=== PATIENT | female | born 1935 | race Caucasian/White ===

== ENCOUNTER 2019-11-04 02:15 | Inpatient (IN) | payer MEDICARE, OTHER ==
[~2019-11-04] VITALS: Ht 154.9 cm; Wt 72.7 kg
[2019-11-04] MEDS ORDERED: SODIUM CHLORIDE 0.9% 1,000 ML IV ONE (03:30)
[2019-11-04] MEDS ORDERED: VANCOMYCIN HCL 1 GM/D5% WATER 200 ML IV ONE (03:30)
[2019-11-04 04:23] LABS: BASOPHILS % (AUTO) 0.5 % (0.0-2.0); EOSINOPHILS % (AUTO) 10.6 % (1.0-6.0); HEMATOCRIT 36.7 % (36-46); HEMOGLOBIN 12.2 g/dL (12.0-16.0); LYMPHOCYTES # (AUTO) 1.7 K/uL (1.0-4.8); LYMPHOCYTES % (AUTO) 20.5 % (22.0-44.0); MEAN CORPUSCULAR HEMOGLOBIN 31.2 pg (26.0-34.0); MEAN CORPUSCULAR HGB CONC 33.1 G/dL (31.0-37.0); MEAN CORPUSCULAR VOLUME 94 fL (80-100); MONOCYTES # (AUTO) 0.6 K/uL (0.1-1.0); MONOCYTES % (AUTO) 6.9 % (2.0-9.0); NEUTROPHILS # (AUTO) 5.2 K/uL (1.8-7.7); NEUTROPHILS % (AUTO) 61.5 % (40.0-70.0); PLATELET COUNT (AUTO) 349 K/uL (150-450); RED CELL DISTRIBUTION WIDTH 14.4 % (11.5-14.5)
[2019-11-04 04:48] LABS: CALCIUM, TOTAL 8.9 mg/dL (8.8-10.5); CREATININE 1.52 mg/dL (0.60-1.30)
[2019-11-04 05:09] LABS: INR 1.1 (0.9-1.1); PROTHROMBIN TIME 11.2 SEC (9.4-11.6)
[2019-11-04 05:11] LABS: ALBUMIN 2.9 g/dL (3.4-5.0); BILIRUBIN,TOTAL 0.7 mg/dL (0.1-1.0); MAGNESIUM 2.3 mg/dL (1.80-2.40); TOTAL PROTEIN, SERUM 6.9 g/dL (6.4-8.2)
[2019-11-04] MEDS ORDERED: ACETAMINOPHEN 325 MG TABLET PO PRN ×2 (05:30→07:00)
[2019-11-04] MEDS ORDERED: 0.9% SODIUM CHLORIDE 10 ML SYRINGE IVP PRN (05:30)
[2019-11-04] MEDS ORDERED: ONDANSETRON HCL 4 MG/2 ML VIAL IVP PRN (05:30)
[2019-11-04] MEDS ORDERED: LORazepam 2 MG/ML VIAL IVP ONE (05:30)
[2019-11-04] MEDS ORDERED: PERMETHRIN 5% 60 GM CREAM TP ONE (05:45)
[2019-11-04] MEDS ORDERED: DEXTROSE 5%-0.45% SODIUM CHL 1,000 ML IV ONE (07:00)
[2019-11-04] MEDS ORDERED: MAGNESIUM HYDROXIDE SUSPENSION 30 ML UDCUP PO PRN (07:00)
[2019-11-04] MEDS ORDERED: ALBUTEROL SULFATE 2.5 MG/0.5 ML NEB SOLUTION NEB PRN (07:00)
[2019-11-04] MEDS ORDERED: VANCOMYCIN HCL 500 MG in DEXTROSE 5%-WATER 100 ML IV ONE (08:00)
[2019-11-04 08:42] VITALS: BP 149/86
[2019-11-04] MEDS: ASPIRIN 81 MG CHEWABLE TABLET PO SCH (08:51)
[2019-11-04] MEDS: DOCUSATE SODIUM 100 MG CAPSULE PO SCH ×2 (08:53→20:15)
[2019-11-04] MEDS: HEPARIN SODIUM,PORCINE 5,000 UNITS/ML VIAL SQ SCH ×3 (08:54→20:15)
[2019-11-04] MEDS ORDERED: DiphenhydrAMINE HCL 50 MG/ML VIAL ONE (09:19)
[2019-11-04] MEDS: DiphenhydrAMINE HCL 50 MG/ML VIAL IVP PRN ×2 (10:02→17:42)
[2019-11-04] MEDS ORDERED: LORazepam 2 MG/ML VIAL IVP PRN ×2 (12:30→14:15)
[2019-11-04] MEDS ORDERED: LORazepam 2 MG/ML VIAL IM PRN (12:30)
[2019-11-04] MEDS: TRIAMCINOLONE 0.1% 15 GM CREAM TP SCH ×2 (15:05→20:16)
[2019-11-04] MEDS ORDERED: FURO20 PO (15:55)
[2019-11-04] MEDS ORDERED: SULF1TAB42 PO (15:55)
[2019-11-04] MEDS ORDERED: AMLO2.5T4 PO (15:55)
[2019-11-04] MEDS ORDERED: TRIA15OI6 TP (15:55)
[2019-11-04] MEDS ORDERED: QUET25TA PO (15:55)
[2019-11-04] MEDS: QUEtiapine FUMARATE 25 MG TABLET PO PRN ×2 (15:58→20:15)
[2019-11-04 16:00] VITALS: BP 145/87
[2019-11-04 20:00] VITALS: BP 138/80
[2019-11-04] MEDS ORDERED: HALOPERIDOL LACTATE 5 MG/ML VIAL IM ONE (20:15)
[2019-11-05 01:00] VITALS: BP 132/85
[2019-11-05] MEDS: DiphenhydrAMINE HCL 50 MG/ML VIAL IVP PRN (02:02)
[2019-11-05] MEDS: VANCOMYCIN HCL 750 MG in DEXTROSE 5%-WATER 250 ML IV SCH (06:29)
[2019-11-05] MEDS: TRIAMCINOLONE 0.1% 80 GM CREAM TP SCH ×3 (07:52→21:00)
[2019-11-05] MEDS: DOCUSATE SODIUM 100 MG CAPSULE PO SCH ×2 (07:56→21:19)
[2019-11-05] MEDS: AmLODIPine BESYLATE 2.5 MG TABLET PO SCH (07:56)
[2019-11-05] MEDS: ASPIRIN 81 MG CHEWABLE TABLET PO SCH (07:56)
[2019-11-05] MEDS: QUEtiapine FUMARATE 25 MG TABLET PO PRN ×2 (07:56→21:19)
[2019-11-05] MEDS: HEPARIN SODIUM,PORCINE 5,000 UNITS/ML VIAL SQ SCH ×3 (07:56→23:28)
[2019-11-05 08:35] VITALS: BP 111/65
[2019-11-05] MEDS ORDERED: FUROSEMIDE 20 MG TABLET PO SCH (09:00)
[2019-11-05 10:00] LABS: GLUCOMETER DEV NAME(LOC) 6S.1; GLUCOSE,POINT OF CARE 125 MG/DL (70-110)
[2019-11-05 11:08] VITALS: BP 134/78
[2019-11-05 15:32] VITALS: BP 140/61
[2019-11-05 16:29] LABS: CALCIUM, TOTAL 8.9 mg/dL (8.8-10.5); CREATININE 1.12 mg/dL (0.60-1.30); POTASSIUM 4.1 mmol/L (3.5-5.1)
[2019-11-05 19:30] VITALS: BP 134/64
[2019-11-05 23:30] VITALS: BP 130/62
[2019-11-06 03:57] VITALS: BP 138/66
[2019-11-06] MEDS: VANCOMYCIN HCL 750 MG in DEXTROSE 5%-WATER 250 ML IV SCH (06:38)
[2019-11-06] MEDS: AmLODIPine BESYLATE 2.5 MG TABLET PO SCH (07:46)
[2019-11-06] MEDS: DOCUSATE SODIUM 100 MG CAPSULE PO SCH ×2 (07:46→21:22)
[2019-11-06] MEDS: ASPIRIN 81 MG CHEWABLE TABLET PO SCH (07:46)
[2019-11-06] MEDS: HEPARIN SODIUM,PORCINE 5,000 UNITS/ML VIAL SQ SCH ×2 (07:46→16:29)
[2019-11-06] MEDS: TRIAMCINOLONE 0.1% 80 GM CREAM TP SCH ×3 (07:46→21:23)
[2019-11-06 09:03] VITALS: BP 152/84
[2019-11-06] MEDS: QUEtiapine FUMARATE 25 MG TABLET PO PRN (09:53)
[2019-11-06 12:59] VITALS: BP 133/77
[2019-11-06 16:07] VITALS: BP 144/77
[2019-11-06 20:00] VITALS: BP 149/65
[2019-11-06 23:40] VITALS: BP 138/87
[2019-11-07] VITALS (7 sets, daily range): BP systolic 122–160; BP diastolic 46–79
[2019-11-07] MEDS: HEPARIN SODIUM,PORCINE 5,000 UNITS/ML VIAL SQ SCH ×3 (00:04→17:58)
[2019-11-07 06:57] LABS: BASOPHILS % (AUTO) 1.1 % (0.0-2.0); EOSINOPHILS % (AUTO) 14.1 % (1.0-6.0); HEMATOCRIT 33.1 % (36-46); HEMOGLOBIN 11.2 g/dL (12.0-16.0); LYMPHOCYTES # (AUTO) 1.5 K/uL (1.0-4.8); LYMPHOCYTES % (AUTO) 29.7 % (22.0-44.0); MEAN CORPUSCULAR HEMOGLOBIN 32.1 pg (26.0-34.0); MEAN CORPUSCULAR HGB CONC 33.9 G/dL (31.0-37.0); MEAN CORPUSCULAR VOLUME 95 fL (80-100); MONOCYTES # (AUTO) 0.3 K/uL (0.1-1.0); MONOCYTES % (AUTO) 6.4 % (2.0-9.0); NEUTROPHILS # (AUTO) 2.5 K/uL (1.8-7.7); NEUTROPHILS % (AUTO) 48.7 % (40.0-70.0); PLATELET COUNT (AUTO) 267 K/uL (150-450); RED CELL DISTRIBUTION WIDTH 14.7 % (11.5-14.5)
[2019-11-07 07:15] LABS: CALCIUM, TOTAL 8.8 mg/dL (8.8-10.5); CREATININE 1.07 mg/dL (0.60-1.30); POTASSIUM 3.8 mmol/L (3.5-5.1); VANCOMYCIN,RANDOM 5.7 mcg/mL (25.0-50.0)
[2019-11-07] MEDS: ASPIRIN 81 MG CHEWABLE TABLET PO SCH (08:12)
[2019-11-07] MEDS: DOCUSATE SODIUM 100 MG CAPSULE PO SCH ×2 (08:12→22:04)
[2019-11-07] MEDS: AmLODIPine BESYLATE 2.5 MG TABLET PO SCH (08:13)
[2019-11-07] MEDS: TRIAMCINOLONE 0.1% 80 GM CREAM TP SCH ×3 (09:00→22:05)
[2019-11-07] MEDS: SULFAMETHOX/TRIMETH DS 800-160 MG/TABLET PO SCH ×2 (09:00→22:04)
[2019-11-07] MEDS ORDERED: VANCOMYCIN HCL 750 MG in DEXTROSE 5%-WATER 250 ML IV SCH (19:00)
[2019-11-08] MEDS: HEPARIN SODIUM,PORCINE 5,000 UNITS/ML VIAL SQ SCH ×3 (02:11→16:00)
[2019-11-08 05:32] VITALS: BP 140/62
[2019-11-08 07:17] LABS: CALCIUM, TOTAL 8.7 mg/dL (8.8-10.5); CREATININE 0.96 mg/dL (0.60-1.30); POTASSIUM 3.9 mmol/L (3.5-5.1)
[2019-11-08 07:52] VITALS: BP 116/70
[2019-11-08] MEDS: DOCUSATE SODIUM 100 MG CAPSULE PO SCH (08:05)
[2019-11-08] MEDS: ASPIRIN 81 MG CHEWABLE TABLET PO SCH (08:05)
[2019-11-08] MEDS: TRIAMCINOLONE 0.1% 80 GM CREAM TP SCH ×2 (08:05→16:35)
[2019-11-08] MEDS: SULFAMETHOX/TRIMETH DS 800-160 MG/TABLET PO SCH (08:05)
[2019-11-08] MEDS: AmLODIPine BESYLATE 2.5 MG TABLET PO SCH (08:05)
[2019-11-08] MEDS: QUEtiapine FUMARATE 25 MG TABLET PO PRN (08:06)
[2019-11-08 12:00] VITALS: BP 117/71
[2019-11-08 16:00] VITALS: BP 126/66
[2019-11-08] MEDS ORDERED: ASPI81TA39 PO (16:47)
== END 2019-11-08 17:45 | disposition home or self-care (01) | DRG 603 ==
LOC: EMS 02:17 → 6N 05:37
PROVIDERS: ADMIT Internal Medicine; ATTEND Internal Medicine
DX: L03.116 Cellulitis of left lower limb (principal); N17.9 Acute kidney failure, unspecified; E44.0 Moderate protein-calorie malnutrition; F03.91 Unspecified dementia, unspecified severity, with behavioral disturbance; F05 Delirium due to known physiological condition; R62.7 Adult failure to thrive; B95.62 Methicillin resistant Staphylococcus aureus infection as the cause of diseases classified elsewhere; B86 Scabies; L30.9 Dermatitis, unspecified; Z68.30 Body mass index [BMI] 30.0-30.9, adult; Z78.9 Other specified health status
CPT/HCPCS: 70450; 72125; 83735; 87070; 87081; 87205; 92610; 93005; 93970; 96365; 96375; 97116; 97162; 97530; J1200; J1630; J1644; J2060; J3370; J7030; J7060

== ENCOUNTER 2020-06-10 11:26 | Emergency (ER) | payer MEDICARE, OTHER ==
[~2020-06-10] VITALS: Ht 160 cm; Wt 77.3 kg
[~2020-06-10 11:26] MED LIST: AMLO2.5T96 PO; ASPI-728 PO; TRIA15OI6 TP
[2020-06-10 11:28] VITALS: BP 127/82
[2020-06-10] MEDS ORDERED: LEVO100 PO (11:30)
[2020-06-10] MEDS ORDERED: DOXYCYCLINE HYCLATE 100 MG TABLET PO ONE (12:15)
== END 2020-06-10 12:34 | disposition home or self-care (01) ==
LOC: EMS 11:28
DX: L03.115 Cellulitis of right lower limb (principal); I10 Essential (primary) hypertension; Z79.82 Long term (current) use of aspirin; Z88.8 Allergy status to other drugs, medicaments and biological substances

== ENCOUNTER 2020-06-25 09:43 | Emergency (ER) | payer MEDICARE, OTHER ==
[~2020-06-25] VITALS: Ht 154.9 cm; Wt 65.9 kg
[~2020-06-25 09:43] MED LIST changes: +LEVO100 PO
[2020-06-25] MEDS: ACETAMINOPHEN 500 MG TABLET PO ONE ×2 (10:48→11:15)
[2020-06-25] MEDS ORDERED: ACETAMINOPHEN 500 MG TABLET PO ONE (11:15)
[2020-06-25 12:16] VITALS: BP 119/86
== END 2020-06-25 12:22 | disposition home or self-care (01) ==
LOC: EMS 09:44
DX: S00.83XA Contusion of other part of head, initial encounter (principal); S90.31XA Contusion of right foot, initial encounter; I10 Essential (primary) hypertension; Z88.8 Allergy status to other drugs, medicaments and biological substances; Z79.82 Long term (current) use of aspirin; Z79.899 Other long term (current) drug therapy; W18.39XA Other fall on same level, initial encounter; Y93.89 Activity, other specified; Y92.89 Other specified places as the place of occurrence of the external cause; Y99.8 Other external cause status
CPT/HCPCS: 73590-TC; 73630-TC; Z7502; Z7610

== ENCOUNTER 2020-07-16 09:13 | Emergency (ER) | payer MEDICARE, OTHER ==
[~2020-07-16] VITALS: Ht 152.4 cm; Wt 75.0 kg
[2020-07-16 11:05] LABS: APPEARANCE,URINE CLOUDY (CLEAR); GLUCOSE, URINE (UA) NEGATIVE (NEGATIVE); KETONES,URINE NEGATIVE (NEGATIVE); LEUKOCYTE ESTERASE ,URINE SMALL (NEGATIVE); NITRATE,URINE NEGATIVE (NEGATIVE); OCCULT BLOOD,URINE NEGATIVE (NEGATIVE); PROTEIN,URINE NEGATIVE (NEGATIVE); UROBILINOGEN,URINE 0.2 mg/dL (<=1.0)
[2020-07-16 11:12] LABS: BASOPHILS % (AUTO) 2.6 % (0.0-2.0); EOSINOPHILS % (AUTO) 3.9 % (1.0-6.0); HEMOGLOBIN 12.1 g/dL (12.0-16.0); LYMPHOCYTES # (AUTO) 1.4 K/uL (1.0-4.8); LYMPHOCYTES % (AUTO) 29.7 % (22.0-44.0); MEAN CORPUSCULAR HEMOGLOBIN 32.7 pg (26.0-34.0); MEAN CORPUSCULAR HGB CONC 34.4 G/dL (31.0-37.0); MEAN CORPUSCULAR VOLUME 95 fL (80-100); MONOCYTES # (AUTO) 0.3 K/uL (0.1-1.0); MONOCYTES % (AUTO) 6.5 % (2.0-9.0); NEUTROPHILS # (AUTO) 2.7 K/uL (1.8-7.7); NEUTROPHILS % (AUTO) 57.3 % (40.0-70.0); PLATELET COUNT (AUTO) 243 K/uL (150-450); RED BLOOD CELL COUNT(AUTO) 3.69 MIL/uL (4.00-5.20); RED CELL DISTRIBUTION WIDTH 13.4 % (11.5-14.5)
[2020-07-16 11:13] LABS: BILIRUBIN,URINE PRELIM. POSITIVE (NEGATIVE)
[2020-07-16 11:18] LABS: BACTERIA,URINE None Seen /HPF (None Seen); RBC,URINE 0-2 /HPF (0-2); SQUAMOUS EPITHELIAL CELL,UR Many /LPF (None Seen)
[2020-07-16 11:25] LABS: CALCIUM, TOTAL 9.2 mg/dL (8.8-10.5); CREATININE 1.18 mg/dL (0.60-1.30); POTASSIUM 3.8 mmol/L (3.5-5.1)
[2020-07-16 11:33] LABS: ALBUMIN 3.3 g/dL (3.4-5.0); BILIRUBIN,TOTAL 0.4 mg/dL (0.1-1.0); TOTAL PROTEIN, SERUM 7.1 g/dL (6.4-8.2)
[2020-07-16 12:30] VITALS: BP 128/74
== END 2020-07-16 12:53 | disposition home or self-care (01) ==
LOC: EMS 09:20
DX: M54.9 Dorsalgia, unspecified (principal); F03.90 Unspecified dementia, unspecified severity, without behavioral disturbance, psychotic disturbance, mood disturbance, and anxiety; Z88.0 Allergy status to penicillin; Z79.82 Long term (current) use of aspirin; Z79.899 Other long term (current) drug therapy
CPT/HCPCS: 51701; 74176

== ENCOUNTER 2020-08-16 15:25 | Emergency (ER) | payer MEDICARE, OTHER ==
[~2020-08-16] VITALS: Ht 154.9 cm; Wt 63.6 kg
[2020-08-16 15:39] VITALS: BP 104/74
== END 2020-08-16 17:02 | disposition left against medical advice (07) ==
LOC: EMS 15:25
DX: R05 Cough (principal); Z53.21 Procedure and treatment not carried out due to patient leaving prior to being seen by health care provider

== ENCOUNTER 2020-08-18 08:42 | Emergency (ER) | payer MEDICARE, OTHER ==
[~2020-08-18] VITALS: Ht 154.9 cm; Wt 57.7 kg
[2020-08-18] MEDS ORDERED: KETOROLAC TROMETHAMINE 30 MG/ML VIAL IM ONE (10:00)
[2020-08-18] MEDS ORDERED: TraMADol HCL 50 MG TABLET PO ONE (10:00)
[2020-08-18 10:25] VITALS: BP 121/54
== END 2020-08-18 10:38 | disposition home or self-care (01) ==
LOC: EMS 08:45
DX: M54.5 Low back pain (principal); I10 Essential (primary) hypertension; Z88.8 Allergy status to other drugs, medicaments and biological substances; Z79.82 Long term (current) use of aspirin
CPT/HCPCS: 96372; 99283; J1885

== ENCOUNTER 2020-11-16 15:21 | Emergency (ER) | payer MEDICARE, OTHER ==
[~2020-11-16] VITALS: Ht 147.3 cm; Wt 56.8 kg
[~2020-11-16 15:21] MED LIST changes: +ASPI-1450 PO; -ASPI-728 PO
[2020-11-16] MEDS ORDERED: 0.9% SODIUM CHLORIDE 10 ML SYRINGE IVP PRN (17:00)
[2020-11-16 18:29] LABS: BASOPHILS % (AUTO) 3.2 % (0.0-2.0); EOSINOPHILS % (AUTO) 3.6 % (1.0-6.0); HEMATOCRIT 36.8 % (36-46); HEMOGLOBIN 12.2 g/dL (12.0-16.0); LYMPHOCYTES % (AUTO) 31.8 % (22.0-44.0); MEAN CORPUSCULAR HEMOGLOBIN 29.8 pg (26.0-34.0); MEAN CORPUSCULAR HGB CONC 33.1 G/dL (31.0-37.0); MEAN CORPUSCULAR VOLUME 90 fL (80-100); MONOCYTES # (AUTO) 0.4 K/uL (0.1-1.0); MONOCYTES % (AUTO) 5.9 % (2.0-9.0); NEUTROPHILS # (AUTO) 3.4 K/uL (1.8-7.7); NEUTROPHILS % (AUTO) 55.5 % (40.0-70.0); PLATELET COUNT (AUTO) 290 K/uL (150-450); RED BLOOD CELL COUNT(AUTO) 4.09 MIL/uL (4.00-5.20); RED CELL DISTRIBUTION WIDTH 14.2 % (11.5-14.5)
[2020-11-16 18:39] LABS: CALCIUM, TOTAL 9.5 mg/dL (8.8-10.5); CREATININE 1.32 mg/dL (0.60-1.30); POTASSIUM 4.2 mmol/L (3.5-5.1)
[2020-11-16 18:45] LABS: ALBUMIN 3.7 g/dL (3.4-5.0); BILIRUBIN,TOTAL 0.3 mg/dL (0.1-1.0)
[2020-11-16 18:59] LABS: LACTIC ACID 0.6 mmol/L (0.4-2.0)
[2020-11-16] MEDS ORDERED: CefTRIAXone 1 GM/DEXTROSE 50 ML IV ONE (19:15)
[2020-11-16 19:40] VITALS: BP 132/82
== END 2020-11-16 19:41 | disposition home or self-care (01) ==
LOC: EMS 15:23
DX: S51.811A Laceration without foreign body of right forearm, initial encounter (principal); L03.113 Cellulitis of right upper limb; I10 Essential (primary) hypertension; Z88.8 Allergy status to other drugs, medicaments and biological substances; Z79.82 Long term (current) use of aspirin; X58.XXXA Exposure to other specified factors, initial encounter; Y93.89 Activity, other specified; Y92.89 Other specified places as the place of occurrence of the external cause; Y99.8 Other external cause status
CPT/HCPCS: 36415; 80053; 83605; 85025; 87040; 96365; 99284; J0696

== ENCOUNTER 2021-02-07 08:50 | Emergency (ER) | payer MEDICARE, OTHER ==
[~2021-02-07] VITALS: Ht 152.4 cm; Wt 70.5 kg
[2021-02-07] MEDS ORDERED: ACETAMINOPHEN 1000 MG/ISO-OSM 100 ML IV ONE (09:15)
[2021-02-07] MEDS ORDERED: KETOROLAC TROMETHAMINE 30 MG/ML VIAL IVP ONE (09:15)
[2021-02-07 09:25] VITALS: BP 139/71
[2021-02-07 09:28] LABS: BASOPHILS % (AUTO) 1.2 % (0.0-2.0); EOSINOPHILS % (AUTO) 2.9 % (1.0-6.0); HEMATOCRIT 38.2 % (36-46); HEMOGLOBIN 12.6 g/dL (12.0-16.0); LYMPHOCYTES # (AUTO) 1.6 K/uL (1.0-4.8); LYMPHOCYTES % (AUTO) 28.8 % (22.0-44.0); MEAN CORPUSCULAR HEMOGLOBIN 29.7 pg (26.0-34.0); MEAN CORPUSCULAR HGB CONC 32.9 G/dL (31.0-37.0); MEAN CORPUSCULAR VOLUME 90 fL (80-100); MONOCYTES # (AUTO) 0.3 K/uL (0.1-1.0); MONOCYTES % (AUTO) 6.4 % (2.0-9.0); NEUTROPHILS # (AUTO) 3.3 K/uL (1.8-7.7); NEUTROPHILS % (AUTO) 60.7 % (40.0-70.0); PLATELET COUNT (AUTO) 236 K/uL (150-450); RED BLOOD CELL COUNT(AUTO) 4.24 MIL/uL (4.00-5.20); RED CELL DISTRIBUTION WIDTH 16.3 % (11.5-14.5)
[2021-02-07 09:38] LABS: CALCIUM, TOTAL 9.6 mg/dL (8.8-10.5); CREATININE 1.3 mg/dL (0.60-1.30); POTASSIUM 3.5 mmol/L (3.5-5.1)
[2021-02-07 09:44] LABS: ALBUMIN 3.7 g/dL (3.4-5.0); BILIRUBIN,TOTAL 0.4 mg/dL (0.1-1.0); TOTAL PROTEIN, SERUM 7.2 g/dL (6.4-8.2)
== END 2021-02-07 12:10 | disposition home or self-care (01) ==
LOC: EMS 09:01
DX: S39.012A Strain of muscle, fascia and tendon of lower back, initial encounter (principal); S50.01XA Contusion of right elbow, initial encounter; S20.211A Contusion of right front wall of thorax, initial encounter; F03.90 Unspecified dementia, unspecified severity, without behavioral disturbance, psychotic disturbance, mood disturbance, and anxiety; I10 Essential (primary) hypertension; Z86.2 Personal history of diseases of the blood and blood-forming organs and certain disorders involving the immune mechanism; Z88.8 Allergy status to other drugs, medicaments and biological substances; Z79.82 Long term (current) use of aspirin; W01.0XXA Fall on same level from slipping, tripping and stumbling without subsequent striking against object, initial encounter; Y93.01 Activity, walking, marching and hiking; Y92.89 Other specified places as the place of occurrence of the external cause; Y99.8 Other external cause status
CPT/HCPCS: 36415; 71045; 72070; 72100; 73080; 80053; 84484; 85025; 93005; 96374; 96375; 99285; J0131; J1885